=== PATIENT | male | born 1935 | race Caucasian/White ===

== ENCOUNTER 2023-11-28 13:41 | Emergency (ER) | payer OTHER, MEDICARE, SELFPAY ==
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
[2023-11-28 14:32] VITALS: BP 141/79; PULSE 84; RESP 18; TEMP 37.1; O2SAT 98; BMI 22.5
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
[2023-11-28 16:30] VITALS: BP 140/80; PULSE 90; RESP 18; TEMP 37.1; O2SAT 98
== END 2023-11-28 16:43 | disposition home or self-care (01) ==
PROVIDERS: Emergency Provider Emergency Medicine
DX: Z04.1 Encounter for examination and observation following transport accident (principal); M54.50 Low back pain, unspecified; M62.830 Muscle spasm of back
CPT/HCPCS: 70450; 71101; 72100; 72125; 99282; 99284